=== PATIENT | female | born 1995 | race Caucasian/White ===

== ENCOUNTER 2019-05-25 12:29 | Emergency (ER) | payer SELFPAY ==
[~2019-05-25] VITALS: Ht 147.3 cm; Wt 68.0 kg
--- NOTE | 2019-05-25 12:45 | NUR ---
PATIENT WAS MSE MELA HORAN IN ROOM 04B. PATIENT A & O X4.
[2019-05-25] MEDS ORDERED: IBUPROFEN 600 MG TABLET ONE (12:50)
--- NOTE | 2019-05-25 12:54 | NUR ---
Patient discharged to home in stable condition. Written and verbal after care instructions given. Patient verbalizes understanding of instructions.
[2019-05-25] MEDS ORDERED: IBUPROFEN 600 MG TABLET PO ONE (13:00)
== END 2019-05-25 12:56 | disposition home or self-care (01) ==
LOC: ER 12:29
DX: J10.1 Influenza due to other identified influenza virus with other respiratory manifestations (principal)
CPT/HCPCS: A4663

== ENCOUNTER 2019-12-15 10:36 | Emergency (ER) | payer OTHER ==
[~2019-12-15] VITALS: Ht 152.4 cm; Wt 78.0 kg
--- NOTE | 2019-12-15 11:39 | NUR ---
PATIENT WAS SEEN BY . ISABELLA SWAB DONE. PATIENT INSTRUCTED TO QUARANTINE UNTIL SHE GETS RESULTS. DC AND FOLLOW UP INSTRUCTIONS GIVEN AND EXPLAINED TO PATIENT WHO STATES SHE UNDERSTANDS ALL INSTRUCTIONS
== END 2019-12-15 11:43 | disposition home or self-care (01) ==
LOC: ER 10:36
DX: R50.9 Fever, unspecified (principal); Z20.828 Contact with and (suspected) exposure to other viral communicable diseases; Z97.5 Presence of (intrauterine) contraceptive device
CPT/HCPCS: A4663

== ENCOUNTER 2020-10-07 15:04 | Inpatient (IN) | payer OTHER ==
[~2020-10-07] VITALS: Ht 147.3 cm; Wt 79.4 kg
--- NOTE | 2020-10-07 15:30 | NUR ---
Patient brought to ED for right sided weakness with left sided headache by mother, no weakness noted on arrival, patient does continue to complain of left sided headache, 20g IV started in left MD Kehinde at bedside for assessment
--- NOTE | 2020-10-07 15:35 | NUR ---
Patient able to lift and hold all extremities without drift, alert and oriented
[2020-10-07 15:45] LABS: BASOPHILS % (AUTO) 0.2 % (0.0-2.0); EOSINOPHILS # (AUTO) 0.1 K/uL (0.0-0.7); EOSINOPHILS % (AUTO) 1.4 % (0.0-7.0); HEMATOCRIT 40.4 % (31.2-41.9); HEMOGLOBIN 13.4 g/dL (10.9-14.3); LYMPHOCYTES # (AUTO) 2.7 K/uL (20.0-40.0); LYMPHOCYTES % (AUTO) 31.5 % (20.5-51.5); MEAN CORPUSCULAR HEMOGLOBIN 29.1 uug (24.7-32.8); MEAN CORPUSCULAR HGB CONC 33 g/dL (32.3-35.6); MEAN CORPUSCULAR VOLUME 87.5 fL (75.5-95.3); MONOCYTES # (AUTO) 0.7 K/uL (2.0-10.0); MONOCYTES % (AUTO) 7.9 % (0.0-11.0); PLATELET COUNT (AUTO) 357 K/uL (179-408); RED BLOOD CELL COUNT(AUTO) 4.61 MIL/uL (3.63-4.92); WHITE BLOOD COUNT (AUTO) 8.5 K/uL (3.8-11.8)
[2020-10-07 15:50] LABS: CREATININE 0.8 mg/dL (0.6-1.3); POTASSIUM 3.7 mmol/L (3.5-5.1)
[2020-10-07] MEDS ORDERED: METOCLOPRAMIDE HCL 10 MG/2 ML VIAL IV ONE (16:30)
[2020-10-07] MEDS ORDERED: diphenhydrAMINE 50 MG/1 ML VIAL IV ONE (16:30)
[2020-10-07] MEDS ORDERED: diphenhydrAMINE 50 MG/1 ML VIAL ONE (16:36)
[2020-10-07] MEDS ORDERED: METOCLOPRAMIDE HCL 10 MG/2 ML VIAL ONE (16:36)
--- NOTE | 2020-10-07 16:58 | NUR ---
Patient states relief from left sided headache
[2020-10-07] MEDS ORDERED: IV NORMAL SALINE 250 ML IV ONE (17:02)
[2020-10-07] MEDS ORDERED: SWABABLE VALVE TRANSFER SET EA MC ONE (17:02)
[2020-10-07] MEDS ORDERED: IOHEXOL 350 100 ML INFUS..BTL ONE (17:02)
--- NOTE | 2020-10-07 18:27 | NUR ---
MD majano noted speaking with MD Romero of [facility] for transfer
--- NOTE | 2020-10-07 18:33 | NUR ---
Patient has been cleared for overnight observation at [facility]
--- NOTE | 2020-10-07 18:51 | NUR ---
Clinicals faxed to Sánchez from patient's insurance company Authorization number:[id number]
--- NOTE | 2020-10-07 19:20 | NUR ---
Report given by SARAN Orlando. Patient denies any symptoms at this time.
--- NOTE | 2020-10-07 19:25 | NUR ---
Pt. reports no symptoms. Denies dizziness, headache, numbness, or vision changes.
--- NOTE | 2020-10-07 20:14 | NUR ---
Report given to SARAN Ramirez for admission to telemetry floor.
--- NOTE | 2020-10-07 20:48 | NUR ---
Dr. Lucero at bedside to evaluate pt.
[2020-10-07 21:41] VITALS: BP 114/64
[2020-10-07] MEDS ORDERED: HYDROCODONE/APAP 5-325MG TABLET PO PRN (21:45)
[2020-10-07] MEDS ORDERED: ONDANSETRON 4 MG/2 ML VIAL IV PRN (21:45)
[2020-10-07] MEDS ORDERED: ACETAMINOPHEN 325 MG TABLET PO PRN (21:45)
[2020-10-07] MEDS ORDERED: MAGNESIUM HYDROXIDE 30 ML LIQUID UDC PO PRN (21:45)
[2020-10-07 23:00] LABS: *URINE HCG, QUAL NEGATIVE (NEGATIVE)
[2020-10-08 04:25] VITALS: BP 101/65
--- NOTE | 2020-10-08 05:33 | NUR ---
Pt admitted last night at 2125H. Neuro check done Q4 hours. NIHSS score is 0. Pt has equal strength in bilateral upper and lower extremities, no facial weakness or dropping, PERRL. Denies pain or SOB. Safety and comfort provided throughout shift. MRI without contrast questionnaire filled out. No other issues or concerns at this time, will endorse to day shift.
[2020-10-08] MEDS ORDERED: PANTOPRAZOLE SODIUM 40 MG TABLET.DR PO SCH (07:00)
[2020-10-08 07:07] LABS: BASOPHILS % (AUTO) 0.3 % (0.0-2.0); EOSINOPHILS # (AUTO) 0.2 K/uL (0.0-0.7); EOSINOPHILS % (AUTO) 2.4 % (0.0-7.0); HEMATOCRIT 38.5 % (31.2-41.9); HEMOGLOBIN 12.8 g/dL (10.9-14.3); LYMPHOCYTES % (AUTO) 39.3 % (20.5-51.5); MEAN CORPUSCULAR HEMOGLOBIN 29.6 uug (24.7-32.8); MEAN CORPUSCULAR HGB CONC 33 g/dL (32.3-35.6); MEAN CORPUSCULAR VOLUME 88.7 fL (75.5-95.3); MONOCYTES # (AUTO) 0.6 K/uL (2.0-10.0); MONOCYTES % (AUTO) 7.7 % (0.0-11.0); NEUTROPHILS # (AUTO) 3.8 K/uL (1.8-8.9); NEUTROPHILS % (AUTO) 50.3 % (38.5-71.5); PLATELET COUNT (AUTO) 333 K/uL (179-408); RED BLOOD CELL COUNT(AUTO) 4.34 MIL/uL (3.63-4.92); WHITE BLOOD COUNT (AUTO) 7.6 K/uL (3.8-11.8)
[2020-10-08 07:22] LABS: CREATININE 0.7 mg/dL (0.6-1.3); MAGNESIUM 2.1 mg/dL (1.8-2.4); POTASSIUM 3.8 mmol/L (3.5-5.1)
[2020-10-08] MEDS ORDERED: ASPIRIN 81 MG TAB.CHEW PO SCH (09:00)
[2020-10-08 11:35] VITALS: BP 108/62
--- NOTE | 2020-10-08 14:27 | NUR ---
pt went to [facility] for mri via ambulances in stable condition
[2020-10-08 16:00] VITALS: BP 100/62
--- NOTE | 2020-10-08 16:03 | NUR ---
pt received back from mri in stable condition
[2020-10-08] MEDS: TOPIRAMATE 25 MG TABLET PO SCH ×2 (17:21→21:00)
[2020-10-08] MEDS ORDERED: IV NORMAL SALINE 250 ML IV ONE (18:10)
[2020-10-08] MEDS ORDERED: SWABABLE VALVE TRANSFER SET EA MC ONE (18:10)
[2020-10-08] MEDS ORDERED: IOHEXOL 350 100 ML INFUS..BTL ONE (18:10)
[2020-10-08] MEDS ORDERED: ATOR40TA PO (20:06)
[2020-10-08] MEDS ORDERED: TOPI25TA PO (20:06)
[2020-10-08 20:22] VITALS: BP 107/75
[2020-10-08] MEDS ORDERED: ATORVASTATIN 40 MG TABLET PO SCH (21:00)
--- NOTE | 2020-10-08 21:15 | NUR ---
Patient is discharged in improved condition; IVHL removed; pt escorted to lobby with family; discharge instructions given and property list signed off.
== END 2020-10-08 21:42 | disposition home or self-care (01) | DRG 54 ==
LOC: ER 15:06 → TELE3 20:30
PROVIDERS: ADMIT Nurse Practitioner Family; ATTEND Nurse Practitioner Family
DX: G43.109 Migraine with aura, not intractable, without status migrainosus (principal); E78.5 Hyperlipidemia, unspecified; Z82.49 Family history of ischemic heart disease and other diseases of the circulatory system; Z20.822 Contact with and (suspected) exposure to COVID-19; F17.290 Nicotine dependence, other tobacco product, uncomplicated
CPT/HCPCS: 36415; 70030-TC; 70450; 70496; 70551; 83735; 84703; 85025; 85305; 85610; 85730; 86140; 93307; 93880; A4663; G0378; J1200; J2765; J7050; Q9967